=== PATIENT | female | born 1975 | race Caucasian/White ===

== ENCOUNTER 2018-02-07 20:13 | Emergency (ER) | payer OTHER ==
[~2018-02-07] VITALS: Ht 162.6 cm; Wt 76.5 kg
[~2018-02-07 20:13] MED LIST: ANTIBIOTIC; ASPIRIN E.C.81 M1 PO; CLARITIN,ALAVAR10 MG PO; CLARITIN10 M3 PO; Motrin PO; NASONEX17 GM NS; Percocet 5/325,Endoc PO; SUDAFED30 MG PO
[2018-02-07 20:34] LABS: HEMATOCRIT 36.4 % (36.0-46.0); HEMOGLOBIN 12.6 G/DL (11.9-15.5); MCH 30.1 PG (29.0-34.0); MCHC 34.6 G/DL (30.0-36.0); MCV 86.9 FL (83-99); PLATELET COUNT 168 K/uL (156-360); RBC DIS.WIDTH-CV 12.5 % (11.8-14.6); RBC DIS.WIDTH-SD 39.7 % (39-53); RED BLOOD COUNT 4.19 M/uL (3.80-5.20); WHITE BLOOD COUNT 8.9 K/uL (4.1-10.2)
[2018-02-07 20:45] LABS: CHLORIDE 108 mEq/L (99-109); POTASSIUM 3.8 mEq/L (3.7-5.4); SODIUM 139 mEq/L (136-147)
[2018-02-07 20:47] LABS: GLUCOSE 88 mg/dL (70-99)
[2018-02-07 20:51] LABS: CREATININE 0.8 mg/dL (0.6-1.3); GFR ESTIMATE (CALCULATED) > 59 mL/min/; UREA NITROGEN (BUN) 20 mg/dL (9-23)
[2018-02-07 20:59] LABS: TROP-I INTERPRETATION NEGATIVE; TROPONIN-I < 0.01 ng/mL (0.0-0.30)
[2018-02-07 21:35] LABS: AMYLASE 79 IU/L (1-118)
[2018-02-07 21:44] LABS: LIPASE 25 U/L (1.0-51.0)
[2018-02-07 23:03] LABS: TROP-I INTERPRETATION NEGATIVE; TROPONIN-I < 0.01 ng/mL (0.0-0.30)
[2018-02-07] MEDS ORDERED: OMEPRAZOLE40 M1 PO (23:23)
[2018-02-07 23:32] VITALS: BP 109/78
== END 2018-02-07 23:34 | disposition home or self-care (01) ==
LOC: EME 20:13
PROVIDERS: Nurse Practitioner Family
DX: R10.13 Epigastric pain (principal); J45.909 Unspecified asthma, uncomplicated; Z79.891 Long term (current) use of opiate analgesic; Z87.891 Personal history of nicotine dependence
CPT/HCPCS: 71046; 80048; 82150; 83690; 84484; 85027; 93005; 99281; 99284